=== PATIENT | male | born 1995 | race Caucasian/White ===

== ENCOUNTER 2020-02-09 16:42 | Emergency (ER) | payer SELFPAY ==
[2020-02-09 16:59] VITALS: BP 129/90; PULSE 85; RESP 16; TEMP 37.4; O2SAT 99
--- NOTE | 2020-02-09 17:11 | ED.EAR ---
HPI - Ear Problem General Chief complaint: Ear Stated complaint: Ear Pain Time Seen by Provider: 02/09/20 17:11 Source: patient Mode of arrival: ambulatory Limitations: no limitations History of Present Illness HPI Narrative: Mark Rogers is a 24 yo male with history of tympananoplasty for cholesteatoma, is here for severe ear pain. He had surgery 3 years ago and did not start a new job so he is not sure as to follow-up with his ENT. Pain is 8 out of 10 Related Data Allergies Allergy/AdvReac Type Severity Reaction Status Date / Time Penicillins Allergy Unknown POSITIVE Verified 02/09/20 17:03 ON ALLERGY TESTING Review of Systems Review of Systems: Narrative: CONSTITUTIONAL: Denies fever, chills, sweats. EYES: Denies visual changes, redness, discharge. ENT: Denies rhinorrhea, congestion, sore throat, right otalgia. CARDIOVASCULAR: Denies chest pain, palpitations, edema. RESPIRATORY: Denies dyspnea, wheezing, cough GASTROINTESTINAL: Denies abdominal pain, nausea, vomiting, diarrhea. GENITOURINARY: Denies dysuria, hematuria, abnormal discharge SKIN: Denies rash or itching. NEUROLOGIC: Denies numbness, or focal weakness. PSYCHIATRIC: Denies anxiety or depression. [facility] Family History Family History Other Diabetes mellitus Social History Social History (Updated 02/09/20 @ 17:25 by Natasha Ray CNP) Smoking status: Never smoker Alcohol intake: never Comments At time of signature, I agree with nursing past medical, surgical, social and family history. There is no relevant family history pertinent to the presenting complaint. Exam Narrative: Exam Narrative: GENERAL: This is a well-nourished, well-developed patient, in mild distress. HEAD: normocephalic, atraumatic. EYES: Sclera clear/white. Vision is grossly intact. EARS: External ears normal, on left , erythema and swelling on right , unable to clearly visualize tympanic membrane -has mild drainage, states hearing is muffled. Hearing grossly intact. NOSE: External nose normal without nasal discharge, nares without redness, no rhinorrhea. THROAT: Mucous membranes moist, posterior pharynx NECK: Neck supple, non-tender CARDIOVASCULAR: Regular rate and rhythm without murmurs, gallops, or rubs. RESPIRATORY: Clear to auscultation. Breath sounds equal bilaterally. No wheezes, rales, or rhonchi. GASTROINTESTINAL: Abdomen soft, non-tender, SKIN: warm, intact with no suspicious lesions or rash, good texture and turgor. NEURO: awake, alert, and oriented to person, place and time. There were no obvious focal neurologic abnormalities. Steady gait EXTREMITIES: Normal range of motion. BACK: Nontender without deformity Course Course Emergency Course: Started on eardrops with prednisone and oral antibiotics Vital Signs Vital signs: Vital Signs Temperature 99.4 F 02/09/20 16:59 Pulse Rate 85 02/09/20 16:59 Respiratory Rate 16 02/09/20 16:59 Blood Pressure 129/90 02/09/20 16:59 Pulse Oximetry 99 02/09/20 16:59 Temperature 99.4 F 02/09/20 16:59 Pulse Rate 85 02/09/20 16:59 Respiratory Rate 16 02/09/20 16:59 Blood Pressure 129/90 02/09/20 16:59 Pulse Oximetry 99 02/09/20 16:59 Medical Decision Making Differential Diagnosis Differential Diagnosis: Chronic otitis media, tear of right tympanic membrane serous otitis Vital Signs Vital Signs: Vital Signs Temperature 99.4 F 02/09/20 16:59 Pulse Rate 85 02/09/20 16:59 Respiratory Rate 16 02/09/20 16:59 Blood Pressure 129/90 02/09/20 16:59 Pulse Oximetry 99 02/09/20 16:59 Temperature 99.4 F 02/09/20 16:59 Pulse Rate 85 02/09/20 16:59 Respiratory Rate 16 02/09/20 16:59 Blood Pressure 129/90 02/09/20 16:59 Pulse Oximetry 99 02/09/20 16:59 Discharge Plan Discharge Clinical Impression: Otitis media Qualifiers: Otitis media type: serous Chronicity: acute Laterality: righ
== END 2020-02-09 17:40 | disposition home or self-care (01) ==
PROVIDERS: Emergency Provider Nurse Practitioner
DX: H65.04 Acute serous otitis media, recurrent, right ear (principal)
CPT/HCPCS: 99213; G0463

== ENCOUNTER 2023-08-31 07:16 | Emergency (ER) | payer OTHER, SELFPAY ==
--- NOTE | ~2023-08-31 | XR_ITS ---
EXAMINATION: XR chest 2V DATE: 08/31/2023 09:12 INDICATION: Cough. TECHNIQUE: Frontal and lateral views of the chest were obtained. COMPARISON: None. FINDINGS: There is no pneumonia, pleural effusion, or pneumothorax. The heart size is normal. IMPRESSION: 1. No acute cardiopulmonary disease. Reviewed, dictated and finalized at location A. [employer]
[2023-08-31 07:23] VITALS: BP 154/82; PULSE 96; RESP 18; TEMP 36.7; O2SAT 94
--- NOTE | 2023-08-31 07:44 | ED.URI ---
HPI - URI/Sore Throat General Chief Complaint: Upper Respiratory Infection Stated Complaint: Coughing Time Seen by Provider: 08/31/23 07:43 History of Present Illness HPI Narrative: Patient is a 27 year old male here with cough. Patient notes that about 2 weeks ago he began having a cough. He notes it is associated with shortness of breath and fatigue. 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 He has been using his son's albuterol inhaler at home intermittently and feels that it helps temporarily but symptoms return. Coughing seems to wake him up at night and he feels some chest heaviness with coughing. He thought symptoms had been improving this Monday however they worsened again. He has not seen a doctor in several years. He has been a smoker for many years, no formal diagnoses of asthma or COPD. No fever or chills. Related Data Allergies Allergy/AdvReac Type Severity Reaction Status Date / Time Penicillins Allergy Unknown POSITIVE Verified 08/31/23 07:17 ON ALLERGY TESTING Review of Systems Review of Systems: All systems reviewed & are unremarkable except as noted in HPI and below PMFSH Family History Family History Other Diabetes mellitus Social History Social History Smoking status: Never smoker Alcohol intake: never Exam Narrative: GENERAL: Well-appearing, well-nourished, and in no acute distress. HEAD: Normocephalic, atraumatic. EYES: PERRLA and EOMI. ENT: Nares clear. Mucous membranes moist. NECK: Supple. CHEST: Faint wheeze bilaterally, coughing during exam. No respiratory distress. HEART: Regular rate and rhythm. Normal peripheral pulses. ABDOMEN: Soft, nontender, nondistended. EXTREMITIES: Normal range of motion. No pedal edema, no calf tenderness. SKIN: Warm, dry, no rash. NEURO: No focal deficits. Alert and oriented x3. PSYCH: Normal mood and affect. Course Course Emergency Course: Chart review performed. Several ENT related visits in 2019, otherwise no visits in our system. Triage vitals show mild HTN, otherwise normal. Triage note states patient is here with a cough and congestion. Patient seen evaluated, history and exam consistent with the post viral cough, suspect that his years of smoking has likely made him more prone to bronchospasm as well as prolonged cough after URI. Will do nebulizer treatment, steroids. Will additionally do an EKG given he is complaining of some chest pressure with coughing however he has no cardiac risk factors aside from smoking, no personal cardiac history or family cardiac history. PERC negative, PE unlikely. CXR to be ordered to evaluate for possible infiltrate given symptoms somewhat improved a few days ago and then worsened again. Patient agreeable to plan of care. Viral swabs negative. CXR negative for fracture, pneumothorax or infiltrate as reviewed by myself and confirmed with radiology report. The results of pertinent diagnostic studies and exam findings were discussed. The patient?s provisional diagnosis and plan of care were discussed with the patient and present family. The patient and/or present family expressed understanding of the diagnosis and plan. The nurse was instructed to provide written instructions and appropriate follow-up information. The patient understands their need and responsibility to obtain additional follow-up as instructed. The risks of medications administered and prescribed were discussed with the patient and family present. Vital Signs Vital signs: Vital Signs Temperature 98.0 F 08/31/23 07:23 Pulse Rate 96 08/31/23 07:23 Respiratory Rate 18 08/31/23 07:23 Blood Pressure 154/82 H 08/31/23 07:23 Pulse Oximetry 94 08/31/23 07:23 Oxygen Delivery Room Air 08/31/23 07:23 Temperature 98.0 F 08/31/23 07:23 Pulse Rate 86 08/31/23 08:21 Respiratory Rate 18 08/31
--- NOTE | 2023-08-31 07:51 | ECG_ITS ---
Measurements Intervals [place] Rate: 67 P: 18 MI: 171 QRS: -16 QRSD: 99 T: 28 QT: 368 QTc: 389 Interpretive Statements SINUS RHYTHM WITH SINUS ARRHYTHMIA NORMAL ECG NO PREVIOUS ECG AVAILABLE FOR COMPARISON Electronically Signed On 08-31-2023 9:06:08 [employer]IST by Jett Castrejon D.O.
[2023-08-31 08:07] VITALS: PULSE 88; RESP 18
[2023-08-31] MEDS: ALBUTEROL SULFATE NEB 2.5 MG/3 ML INH INHALATION (08:07)
[2023-08-31] MEDS: IPRATROPIUM BR 0.02% INH SOLN 0.5 MG/2.5 ML VIAL INHALATION (08:07)
[2023-08-31 08:15] VITALS: BP 160/96; PULSE 77; RESP 16; O2SAT 95
[2023-08-31 08:21] VITALS: PULSE 86; RESP 18
[2023-08-31 09:00] VITALS: BP 146/84; PULSE 65; RESP 16; TEMP 36.7; O2SAT 98
[2023-08-31] MEDS: predniSONE 20 MG TABLET 40 MG PO (09:03)
[2023-08-31 09:07] LABS: Influenza A QL RT-PCR Negative (Negative); Influenza B QL RT-PCR Negative (Negative); RSV RNA, RT-PCR Negative (Negative); SARS-CoV-2 RNA PCR Negative (Negative)
[2023-08-31 09:35] VITALS: BP 164/73; PULSE 66; RESP 16; O2SAT 97
== END 2023-08-31 09:37 | disposition home or self-care (01) ==
PROVIDERS: Emergency Provider Student in an Organized Health Care Education/Training Program
DX: R05.9 Cough, unspecified (principal); Z20.822 Contact with and (suspected) exposure to COVID-19; F17.210 Nicotine dependence, cigarettes, uncomplicated
CPT/HCPCS: 71046; 87637; 93005; 94640; 99283; J7512

== ENCOUNTER 2023-09-27 08:56 | Emergency (ER) | payer OTHER, SELFPAY ==
[2023-09-27 08:58] VITALS: BP 140/73; PULSE 90; RESP 16; TEMP 37.1; O2SAT 100
[2023-09-27 09:05] VITALS: O2SAT 100
--- NOTE | 2023-09-27 09:33 | ED.URI ---
HPI - URI/Sore Throat General Chief Complaint: Upper Respiratory Infection Stated Complaint: MULTI C/O Time Seen by Provider: 09/27/23 09:06 Source: patient Mode of arrival: ambulatory Limitations: no limitations History of Present Illness HPI Narrative: This is a 28-year-old male that presents to the emergency department with cold symptoms. Reports this morning he woke up feeling very achy like he did when he had COVID 2 years ago. He took some Ibuprofen which helped. He thought about taking a home COVID test, but did not. Presented for further evaluation. Reports congestion and a mild cough. Reports drainage from the right ear. Denies fevers or sore throat. Related Data Allergies Allergy/AdvReac Type Severity Reaction Status Date / Time Penicillins Allergy Unknown POSITIVE Verified 09/27/23 09:04 ON ALLERGY TESTING Review of Systems Review of Systems: CONSTITUTIONAL: Denies fever ENT: Report congestion. Denies sore throat RESPIRATORY: Reports cough. Denies dyspnea. All systems reviewed & are unremarkable except as noted in HPI and below PMFSH Past Medical History Medical History (Updated 09/27/23 @ 10:00 by Chelsey Pearce PA-C) No active medical problems Family History Family History Other Diabetes mellitus Social History Social History Smoking status: Never smoker Alcohol intake: never Exam Narrative: GENERAL: Well-appearing, well-nourished, and in no acute distress. HEAD: Normocephalic, atraumatic. EYES: EOMI. ENT: Nares clear, no rhinorrhea or epistaxis. Mucous membranes moist. Oropharynx without tonsillar hypertrophy exudate or other lesions. Left TM pearly ordaz non-bulging. Right TM erythematous with effusion NECK: Supple. No adenopathy or masses. CHEST: Clear to auscultation. No respiratory distress. No wheezes rales or rhonchi HEART: Regular rate and rhythm. No murmur heard. Normal peripheral pulses. EXTREMITIES: Normal range of motion. No edema. SKIN: Warm, dry, no rash. NEURO: No focal deficits. Alert and oriented x3. PSYCH: Normal mood and affect Course Course Emergency Course: Patient updated on workup and agrees with plan of care Vital Signs Vital signs: Vital Signs Temperature 98.8 F 09/27/23 08:58 Pulse Rate 90 09/27/23 08:58 Respiratory Rate 16 09/27/23 08:58 Blood Pressure 140/73 09/27/23 08:58 Pulse Oximetry 100 09/27/23 08:58 Oxygen Delivery Room Air 09/27/23 08:58 Temperature 98.8 F 09/27/23 08:58 Pulse Rate 90 09/27/23 08:58 Respiratory Rate 16 09/27/23 08:58 Blood Pressure 140/73 09/27/23 08:58 Pulse Oximetry 100 09/27/23 09:05 Oxygen Delivery Room Air 09/27/23 09:05 MDM - URI/Sore Throat MDM Narrative Medical decision making narrative: Patient presents to the emergency department for cold symptoms present since this morning. He is afebrile and nontoxic appearing. Lungs are clear on exam. Oxygen saturation is normal on room air. Influenza, RSV, and COVID screens are negative. Patient does have findings of otitis media on exam. Will be started on oral antibiotic. He is to follow up with primary provider. He was given warnings to return to the ER Differential Diagnosis Differential diagnosis: Likely upper respiratory infection, otitis media, viral infection, influenza and other ( COVID) Lab Data Attestation: I reviewed the patient's lab results. Labs: Lab Results 09/27/23 Range/Units 09:09 Influenza A (RT-PCR) Negative (Negative) Influenza B (RT-PCR) Negative (Negative) RSV (RT-PCR) Negative (Negative) SARS-CoV-2 RNA (RT-PCR) Negative (Negative) Critical Care Time Critical Care Time Critical Care Time: No Discharge Plan Discharge Clinical Impression: Otitis media Qualifiers: Otitis media type: unspecified Chronicity: acute Qualified Code(s): H66.90
[2023-09-27 09:50] LABS: Influenza A QL RT-PCR Negative (Negative); Influenza B QL RT-PCR Negative (Negative); RSV RNA, RT-PCR Negative (Negative); SARS-CoV-2 RNA PCR Negative (Negative)
[2023-09-27 10:16] VITALS: BP 133/85; PULSE 87; RESP 14; O2SAT 99
== END 2023-09-27 10:18 | disposition home or self-care (01) ==
PROVIDERS: Emergency Medicine; Emergency Provider Physician Assistant; PCP Family Medicine
DX: H66.91 Otitis media, unspecified, right ear (principal); Z20.822 Contact with and (suspected) exposure to COVID-19; Z86.16 Personal history of COVID-19
CPT/HCPCS: 87637; 99283